=== PATIENT | male | born 1980 | race Caucasian/White ===

== ENCOUNTER 2016-06-08 18:57 | Emergency (ER) | payer OTHER ==
[~2016-06-08] VITALS: Ht 177.8 cm; Wt 76.6 kg
[~2016-06-08 18:57] MED LIST: ACET325T33 PO; AZIT250T94 PO; IBUP-1542 PO; ONDA4TAB8 PO; PSEU120T11 PO
[2016-06-08 19:14] VITALS: Ht 177.8 cm; Wt 76.6 kg
[2016-06-08] MEDS ORDERED: HYDROCODONE/APAP (5/325) TAB PO ONE (22:00)
--- NOTE | 2016-06-08 22:20 | RADRPT ---
PROCEDURE: XR Left Ankle. CLINICAL INDICATION: Fall from ladder with ankle pain. TECHNIQUE: AP, oblique and lateral views of the left ankle were performed. COMPARISON: No. FINDINGS: There is normal mineralization and alignment. No acute fracture or osseous lesion is identified. The joints are normal. There is mild soft tissue swelling over the medial malleolus. IMPRESSION: 1. Soft tissue swelling over the medial malleolus with no underlying fracture or dislocation noted. RPTAT:AAJJ Physician Sergo Date Time Electronically viewed and signed by Po Michaels Physician on 06/08/2016 22:20 /
--- NOTE | 2016-06-08 22:21 | RADRPT ---
PROCEDURE: XR Left Foot. CLINICAL INDICATION: Ankle pain after fall from a ladder. TECHNIQUE: AP, lateral and oblique views of the left foot was obtained. The images were reviewed on a PACS workstation. COMPARISON: No. FINDINGS: The soft tissues and bony elements are normal. There is soft tissue swelling over the medial malleol us. There is no evidence of an acute fracture or dislocation. Some soft tissue swelling is suspecte d adjacent to the fifth metatarsal bone. IMPRESSION: 1. There is soft tissue swelling but no evidence of an acute fracture or dislocation. RPTAT:AAJJ Physician Sergo Date Time Electronically viewed and signed by Po Michaels Physician on 06/08/2016 22:21 GRIFFIN/
--- NOTE | 2016-06-08 22:33 | RADRPT ---
PROCEDURE: XR Lumbar Spine. CLINICAL INDICATION: Low back pain after a fall. TECHNIQUE: AP supine , cone-down lateral, and lateral views of the lumbar spine were obtained. COMPARISON: None. FINDINGS: Mineralization is within normal limits. Vertebral bodies are normal in height. No fracture is iden tified. Lumbar lordosis is preserved. No vertebral subluxation is seen. The intervertebral discs are normal in height. Paraspinal contours are unremarkable. RPTAT:HJJR IMPRESSION: Unremarkable three view series of the lumbar spine. Physician Wiley Date Time Electronically viewed and signed by Physician Wiley on 06/08/2016 22:32 /
--- NOTE | 2016-06-08 22:33 | RADRPT ---
PROCEDURE: XR Tibia and Fibula. CLINICAL INDICATION: Trauma TECHNIQUE: AP and lateral of the left tibia and fibula were obtained, a total of 4 images sent to the PACS for review. COMPARISON: None available FINDINGS: There is normal mineralization and alignment. No fracture or osseous lesion is identified. There are normal soft tissues without evidence of soft tissue swelling or radiopaque foreign body. RPTAT:HJJR IMPRESSION: Unremarkable left tibia and fibula series. Physician Wiley Date Time Electronically viewed and signed by Physician Wiley on 06/08/2016 22:33 JR/
[2016-06-08] MEDS ORDERED: IBUP-1542 PO (23:04)
[2016-06-08] MEDS ORDERED: HYDR-906 PO (23:06)
--- NOTE | 2016-06-08 23:18 | ERD ---
ER Documentation Chief Complaint Date/Time DATE: 06/08/16 TIME: 23:11 Chief Complaint left ankle swelling since yesterday, sp fell on a ladder yesterday HPI Patient is a 36-year-old male who presents to the emergency department with left lower extremity pain status post falling off a ladder yesterday. Patient states that he was approximately 10 feet high when his foot got caught upon coming down the ladder and he fell off the ladder. Patient states he landed on his bilateral feet standing up. Patient reports pain to his left ankle and foot. Patient denies any pain to the right lower extremity. Patient states despite elevating his left lower extremity and taking pain medication, the pain persists. Patient reports swelling to his ankle and midfoot. Patient last took ibuprofen 800 mg 5 PM today. Patient states his current pain level is 6 out of 10. Patient denies any numbness or tingling. Patient denies any fever and chills. Patient denies any back pain. Patient denies any previous injuries. ROS All systems reviewed and are negative except as per history of present illness. Medications Home Meds Active Scripts Hydrocodone/Acetaminophen (Kiel 5-325 Tablet) 1 Each Tablet, 1 TAB PO Q6H Y for PAIN, #10 TAB Prov:BOBBY DAO PA-C 06/08/16 Ibuprofen* (Motrin*) 600 Mg Tab, 600 MG PO Q6, #30 TAB Prov:BOBBY DAO PA-C 06/08/16 Ondansetron Hcl* (Zofran*) 4 Mg Tablet, 4 MG PO Q8H Y for NAUSEA AND/OR VOMITING , #10 TAB Prov:HEIDE MCCONNELL DO 03/21/16 Ibuprofen* (Motrin*) 600 Mg Tab, 600 MG PO Q6H Y for PAIN, #14 TAB Prov:MARILEE BOUCHER MD 11/28/15 Pseudoephedrine Hcl (Sudafe 12-Hour) 120 Mg Tablet.er, 120 MG PO BID Y for CONGESTION, #14 TAB.SA Prov:MARILEE BOUCHER MD 11/28/15 Azithromycin* (Zithromax*) 250 Mg Tablet, 250 MG PO .ZPACK DIRECTED, #6 TAB TAKE 500 MG (2 TABS) THE FIRST DAY THEN 250 MG (1 TAB) DAYS 2-5 Prov:MARILEE BOUCHER MD 11/28/15 Acetaminophen* (Tylenol*) 325 Mg Tablet, 2 TAB PO Q8 Y for PAIN AND OR ELEVATED TEMP, #20 TAB Prov:ABRAHANGUME Mitesh LAY 10/23/15 Allergies Allergies: Coded Allergies: No Known Allergy (Unverified , 03/21/16) PMhx/Soc History of Surgery: No Anesthesia Reaction: No Hx Neurological Disorder: No Hx Respiratory Disorders: No Hx Cardiac Disorders: No Hx Psychiatric Problems: No Hx Miscellaneous Medical Probl: No (DENIES MEDICAL AND SURGICAL HX.) Hx Alcohol Use: Yes (OCCASIONALLY) Hx Substance Use: Yes (MEDUICAL MARIJUFAIRFAX) Hx Tobacco Use: No Smoking Status: Former smoker FmHx Family History: No diabetes Physical Exam Vitals Vital Signs Date Time Temp Pulse Resp B/P Pulse Ox O2 Delivery O2 Flow Rate FiO2 06/08/16 19:14 98.7 121 20 131/63 100 Physical Exam GENERAL: Well-developed, well-nourished male. Appears in no acute distress. HEAD: Normocephalic, atraumatic. EYES: Pupils are equally reactive bilaterally. EOMs grossly intact. No conjunctival erythema. ENT: Moist mucous membranes. No uvula deviation. No kissing tonsils. NECK: Supple. No cervical midline tenderness.. Normal range of motion of the neck. LUNG: Clear to auscultation bilaterally. No rhonchi, wheezing, rales or coarse breath sounds. HEART: Regular rate and rhythm. No murmurs, rubs or gallops. BACK: No midline tenderness. EXTREMITIES: Equal pulses bilaterally. No peripheral clubbing, cyanosis or edema. No unilateral leg swelling. NEUROLOGIC: Alert and oriented. Moving all four extremities without any difficulty. Normal speech. Steady gait. SKIN: Normal color. Warm and dry. No rashes or lesions. LEFT LOWER LEG: No deformity. +Ecchymosis and swelling to the medial aspect of the base of the fifth metatarsal, midfoot, ankle and distal fibula. Skin intact. Decreased range of motion of the ankle secondary to swelling. Range of motion of the toes and knee. Tender to palpation of the lateral and medial ankle, midfoot, distal fibula. No joint line tenderness. (Sensation intact to light touch. Neurovascularly intact. (Able to plantarflex, dorsiflex, jesse foot , invert foot, raise big toe.) 2+ DP and DT pulses. Results 24 hrs Current Medications Medications (Trade) Dose Ordered Sig/Merle Route PRN Reason Start Time Stop Time Status Last Admin Dose Admin Acetaminophen/ Hydrocodone Bitart (Kiel (5/325)) 1 tab ONCE ONCE PO 06/08/16 22:00 06/08/16 22:01 DC 06/08/16 22:24 Procedures/MDM ED COURSE: The patient was stable throughout ED course. I kept the patient and/or family informed of laboratory and diagnostic imaging results throughout the ED course. DIAGNOSTIC IMAGING: Read by radiologist. DIAGNOSTIC IMAGING REPORT Patient: BO MARTINEZ : 1980 Age: 36 Sex: M MR #: [id number] DOS: 06/08/162144 Ordering MD: BOBBY DAO PA-C Location: [facility] Room/Bed: PROCEDURE: XR Left Ankle. CLINICAL INDICATION: Fall from ladder with ankle pain. TECHNIQUE: AP, oblique and lateral views of the left ankle were performed. COMPARISON: No. FINDINGS: There is normal mineralization and alignment. No acute fracture or osseous lesion is identified. The joints are normal. There is mild soft tissue swelling over the medial malleolus. IMPRESSION: 1. Soft tissue swelling over the medial malleolus with no underlying fracture or dislocation noted. RPTAT:AAJJ Physician Sergo Date Time Electronically viewed and signed by Po Michaels Physician on 06/08/2016 22:20 JM/ CC: BOBBY DAO PA-C DIAGNOSTIC IMAGING REPORT Patient: BO MARTINEZ : 1980 Age: 36 Sex: M MR #: [id number] DOS: 06/08/162144 Ordering MD: BOBBY DAO PA-C Location: [facility] Room/Bed: PROCEDURE: XR Left Foot. CLINICAL INDICATION: Ankle pain after fall from a ladder. TECHNIQUE: AP, lateral and oblique views of the left foot was obtained. The images were reviewed on a PACS workstation. COMPARISON: No. FINDINGS: The soft tissues and bony elements are normal. There is soft tissue swelling over the medial malleolus. There is no evidence of an acute fracture or dislocation. Some soft tissue swelling is suspected adjacent to the fifth metatarsal bone. IMPRESSION: 1. There is soft tissue swelling but no evidence of an acute fracture or dislocation. RPTAT:AAJJ Physician Sergo Date Time Electronically viewed and signed by Physician Sergo on 06/08/2016 22:21 JM/ CC: BOBBY DAO PA-C DIAGNOSTIC IMAGING REPORT Patient: SARAY MARTINEZO : 1980 Age: 36 Sex: M MR #: [id number] DOS: 06/08/16 2145 Ordering MD: BOBBY DAO PA-C Location: [facility] Room/Bed: PROCEDURE: XR Lumbar Spine. CLINICAL INDICATION: Low back pain after a fall. TECHNIQUE: AP supine , cone-down lateral, and lateral views of the lumbar spine were obtained. COMPARISON: None. FINDINGS: Mineralization is within normal limits. Vertebral bodies are normal in height. No fracture is identified. Lumbar lordosis is preserved. No vertebral subluxation is seen. The intervertebral discs are normal in height. Paraspinal contours are unremarkable. RPTAT:HJJR IMPRESSION: Unremarkable three view series of the lumbar spine. Physician Wiley Date Time Electronically viewed and signed by Physician Wiley on 06/08/2016 22:32 JR/ CC: BOBBY DAO PA-C DIAGNOSTIC IMAGING REPORT Patient: SANTINO MARTINEZARDO : 1980 Age: 36 Sex: M MR #: [id number] DOS: 06/08/16 2145 Ordering MD: BOBBY DAO PA-C Location: [facility] Room/Bed: PROCEDURE: XR Tibia and Fibula. CLINICAL INDICATION: Trauma TECHNIQUE: AP and lateral of the left tibia and fibula were obtained, a total of 4 images sent to the PACS for review. COMPARISON: None available FINDINGS: There is normal mineralization and alignment. No fracture or osseous lesion is identified. There are normal soft tissues without evidence of soft tissue swelling or radiopaque foreign body. RPTAT:HJJR IMPRESSION: Unremarkable left tibia and fibula series. Physician Wiley Date Time Electronically viewed and signed by Physician Wiley on 06/08/2016 22:33 JR/ CC: BOBBY DAO PA-C PROCEDURES: SPLINT APPLICATION: The patient was verbally consented at bedside prior to splint application. Patient was explained the risks, benefits and alternatives to this procedure. The patient was neurovascularly intact prior to and status post application of the splint. The patient tolerated the procedure well with no complications. Splint type: Kaveh wrap Extremity: left lower extremity Indication: sprain, unable to rule out any ligament or tendon injuries. Unable to rule out Lisfranc fracture or dancer's fracture. MEDICATIONS GIVEN: Kiel Patient tolerated medication well with no adverse reactions. Patient reported improvement in pain. MEDICAL DECISION MAKING: This is a 36-year-old male who presents with left lower extremity pain s/p falling from a ladder yesterday. X-ray imaging was negative of the left foot, left ankle, left tibiofibular, lumbar spine. Given these findings, the patient's presentation is most consistent with ankle and foot sprain. I have a much lower clinical concern for lumbar compression fracture, ankle dislocation, ankle fracture, tibia fracture, fibula fracture, tibial plateau fracture, Maisonneuve fracture, metatarsal fracture, toe dislocation, osteomyelitis, septic joint, gout, osteoarthritis, DVT, compartment syndrome. At this time, unable to rule out any tendon and ligament injuries. PRESCRIPTIONS: Kiel, ibuprofen DISCHARGE: At this time, patient is stable for discharge and outpatient management. Patient was given a copy of all imaging studies. RICE therapy was advised. I have instructed the patient to follow-up with his/her primary care physician in 1-2 days. I have discussed with the patient the possibility of needing to see an cycle specialist for further workup and imaging if the pain persists. I have instructed the patient to promptly return to the ER for any new or worsening symptoms including increased pain, swelling, redness, warmth or fever. The patient and/or family expressed understanding of and agreement with this plan. All questions were answered. Home care instructions were provided. Departure Diagnosis: Primary Impression: Foot sprain Encounter type: initial encounter Laterality: left Qualified Code: S93.602A - Foot sprain, left, initial encounter Additional Impression: Ankle sprain Encounter type: initial encounter Involved ligament of ankle: unspecified ligament Laterality: left Qualified Code: S93.402A - Sprain of left ankle, unspecified ligament, initial encounter Patient Instructions: What Are Ankle Sprains? Referrals: [facility] YOU HAVE RECEIVED A MEDICAL SCREENING EXAM AND THE RESULTS INDICATE THAT YOU DO NOT HAVE A CONDITION THAT REQUIRES URGENT TREATMENT IN THE EMERGENCY DEPARTMENT. FURTHER EVALUATION AND TREATMENT OF YOUR CONDITION CAN WAIT UNTIL YOU ARE SEEN IN YOUR DOCTORS OFFICE WITHIN THE NEXT 1-2 DAYS. IT IS YOUR RESPONSIBILITY TO MAKE AN APPOINTMENT FOR FOLOW-UP CARE. IF YOU HAVE A PRIMARY DOCTOR --you should call your primary doctor and schedule an appointment IF YOU DO NOT HAVE A PRIMARY DOCTOR YOU CAN CALL OUR PHYSICIAN REFERRAL HOTLINE AT IF YOU CAN NOT AFFORD TO SEE A PHYSICIAN YOU CAN CHOSE FROM THE FOLLOWING [facility] [address] [facility] [address] [facility] [facility] [address] [facility] [facility] [address] [facility] [facility] [address] [facility]. [facility]. [address] [facility]. [facility] YOU HAVE RECEIVED A MEDICAL SCREENING EXAM AND THE RESULTS INDICATE THAT YOU DO NOT HAVE A CONDITION THAT REQUIRES URGENT TREATMENT IN THE EMERGENCY DEPARTMENT. FURTHER EVALUATION AND TREATMENT OF YOUR CONDITION CAN WAIT UNTIL YOU ARE SEEN IN YOUR DOCTORS OFFICE WITHIN THE NEXT 1-2 DAYS. IT IS YOUR RESPONSIBILITY TO MAKE AN APPOINTMENT FOR FOLOW-UP CARE. IF YOU HAVE A PRIMARY DOCTOR --you should call your primary doctor and schedule and appointment IF YOU DO NOT HAVE A PRIMARY DOCTOR YOU CAN CALL OUR PHYSICIAN REFERRAL HOTLINE AT . IF YOU CAN NOT AFFORD TO SEE A PHYSICIAN YOU CAN CHOSE FROM THE FOLLOWING [facility] INSTITUTIONS: [facility] [address] [place] [address] [facility] [address] [place] [address] [facility] [address] [place] [address] [facility] Hours: Mon-Fri 9:00 AM - 5:00 PM Additional Instructions: Unable to rule out any tendon or ligament injuries at this time. Patient will need to follow-up with an cycle specialist and/or obtain MRI imaging of the pain persist. Rest. Ice. Compression. Elevation advised. Take pain medication as needed. Call your primary care doctor TOMORROW for an appointment during the next 1-2 days.See the doctor sooner or return here if your condition worsens before your appointment time. BOBBY DAO PA-C Jun 08, 2016 23:18
== END 2016-06-08 23:14 | disposition home or self-care (01) ==
LOC: FTE 18:57
DX: S93.602A Unspecified sprain of left foot, initial encounter (principal); S93.402A Sprain of unspecified ligament of left ankle, initial encounter; W11.XXXA Fall on and from ladder, initial encounter; Y92.9 Unspecified place or not applicable; Z87.891 Personal history of nicotine dependence
CPT/HCPCS: 72100; 73590; 73610; 73630; Z7502; Z7610

== ENCOUNTER 2016-06-30 10:54 | Emergency (ER) | payer OTHER ==
[~2016-06-30] VITALS: Ht 180.3 cm; Wt 73.0 kg
[~2016-06-30 10:54] MED LIST changes: +HYDR-906 PO
[2016-06-30 11:08] VITALS: Ht 180.3 cm; Wt 73.0 kg
[2016-06-30] MEDS ORDERED: AMO500 PO (14:13)
[2016-06-30] MEDS ORDERED: CETI10CA PO (14:13)
[2016-06-30] MEDS ORDERED: UDROBDM PO (14:13)
--- NOTE | 2016-06-30 14:26 | ERD ---
ER Documentation Chief Complaint Date/Time DATE: 06/30/16 TIME: 14:23 Chief Complaint FEVER,COUGH,SORE THROAT,EARACHE HPI 36-year-old male comes with fever, cough, sore throat and bilateral ear pain for the past 2-3 days. He states he has been taking Tylenol, as well as DayQuil. No vomiting, diarrhea, rashes, neck stiffness. No trouble swallowing , voice changes or drooling. ROS All systems reviewed and are negative except as per history of present illness. Medications Home Meds Active Scripts Cetirizine Hcl* (Zyrtec*) 10 Mg Capsule, 10 MG PO DAILY, #10 TAB.CHEW Prov:FRED DUGGAN PA-C 06/30/16 Guaifenesin-Dextromethorphan* (Robitussin* DM) 100MG/10MG/5ML Syrup, 5 ML PO Q4H Y for COUGH, #8 OZ Prov:FRED DUGGAN PA-C 06/30/16 Amoxicillin* (Amoxicillin*) 500 Mg Cap, 500 MG PO TID for 7 Days, CAP Prov:FRED DUGGAN PA-C 06/30/16 Hydrocodone/Acetaminophen (Quitman 5-325 Tablet) 1 Each Tablet, 1 TAB PO Q6H Y for PAIN, #10 TAB Prov:BOBBY DAO PA-C 06/08/16 Ibuprofen* (Motrin*) 600 Mg Tab, 600 MG PO Q6, #30 TAB Prov:BOBBY DAO PA-C 06/08/16 Ondansetron Hcl* (Zofran*) 4 Mg Tablet, 4 MG PO Q8H Y for NAUSEA AND/OR VOMITING , #10 TAB Prov:HEIDE MCCONNELL DO 03/21/16 Ibuprofen* (Motrin*) 600 Mg Tab, 600 MG PO Q6H Y for PAIN, #14 TAB Prov:MARILEE BOUCHER MD 11/28/15 Pseudoephedrine Hcl (Sudafe 12-Hour) 120 Mg Tablet.er, 120 MG PO BID Y for CONGESTION, #14 TAB.SA Prov:MARILEE BOUCHER MD 11/28/15 Azithromycin* (Zithromax*) 250 Mg Tablet, 250 MG PO .ZPACK DIRECTED, #6 TAB TAKE 500 MG (2 TABS) THE FIRST DAY THEN 250 MG (1 TAB) DAYS 2-5 Prov:MARILEE BOUCHER MD 11/28/15 Acetaminophen* (Tylenol*) 325 Mg Tablet, 2 TAB PO Q8 Y for PAIN AND OR ELEVATED TEMP, #20 TAB Prov:GUME GAUTHIER PA-C 10/23/15 Allergies Allergies: Coded Allergies: No Known Allergy (Unverified , 06/30/16) PMhx/Soc Medical and Surgical Hx: pt denies Medical Hx, pt denies Surgical Hx History of Surgery: No Anesthesia Reaction: No Hx Neurological Disorder: No Hx Respiratory Disorders: No Hx Cardiac Disorders: No Hx Psychiatric Problems: No Hx Miscellaneous Medical Probl: No Hx Alcohol Use: Yes (OCCASIONALLY) Hx Substance Use: Yes (MEDICAL MARIJUALVATON) Hx Tobacco Use: No Physical Exam Vitals Vital Signs Date Time Temp Pulse Resp B/P Pulse Ox O2 Delivery O2 Flow Rate FiO2 06/30/16 11:08 97.5 112 18 132/66 98 Physical Exam General: Well-developed, well-nourished. The patient appears in no acute distress. HEENT: Head is normocephalic, atraumatic. No scleral icterus. Oropharynx is clear, no exudate, no LAD, no meningismus. TMs are normal. Neck: Supple. Nontender. Lungs: Clear to auscultation. Normal air movement. Heart: Regular rate and rhythm. S1 and S2 are normal. No murmurs, gallops, or rubs. Abdomen: Nondistended. Extremities: No clubbing or cyanosis. Moving extremities x 4. No weakness. Neurologic: Alert and oriented 3. No focal deficits. Normal speech and gait. Skin: Normal turgor. No rash or lesions. Procedures/MDM The patient is a 36-year-old male who comes in with an acute upper respiratory infection, presumed viral. The patient has a differential diagnosis of a viral upper respiratory infection, bacterial upper respiratory infection, bronchitis, pneumonia, pharyngitis, laryngitis, epiglottitis, croup, pneumonia. Patient has a normal pulmonary examination, clear breath sounds, normal pulse oximetry, with no corrective measures needed at this time. Fluids, rest, antipyretics were encouraged. Patient was wondering if he would be able to get antibiotics, he was informed that this is likely a virus, and there is no efficacy for antibiotics in this presentation. He will be given antibiotics for sore throat , given if he has fever for an additional 3 more days, patient expresses understanding and agrees to plan. Departure Diagnosis: Primary Impression: Influenza-like symptoms Condition: Good Patient Instructions: Viral Syndrome (Adult) Additional Instructions: Call your primary care doctor TOMORROW for an appointment during the next 1-2 days.See the doctor sooner or return here if your condition worsens before your appointment time. FRED DUGGAN PA-C Jun 30, 2016 14:26
== END 2016-06-30 15:13 | disposition home or self-care (01) ==
LOC: FTE 10:54
DX: R50.9 Fever, unspecified (principal); J02.9 Acute pharyngitis, unspecified; H92.03 Otalgia, bilateral
CPT/HCPCS: 99283

== ENCOUNTER 2016-09-27 22:51 | Emergency (ER) | payer OTHER ==
[~2016-09-27] VITALS: Ht 177.8 cm; Wt 73.0 kg
[~2016-09-27 22:51] MED LIST changes: +AMO500 PO; +CETI10CA PO; +UDROBDM PO
[2016-09-27 23:25] VITALS: Ht 177.8 cm; Wt 73.0 kg
[2016-09-27] MEDS ORDERED: SOD CHLORIDE 0.9% 1,000 ML IV STA (23:39)
[2016-09-27] MEDS ORDERED: morphine 4 MG/ML VIAL IV STA (23:39)
[2016-09-27] MEDS ORDERED: ONDANSETRON 4 MG INJ IV STA (23:39)
--- NOTE | 2016-09-27 23:50 | ERD ---
ER Documentation Chief Complaint Date/Time DATE: 09/27/16 TIME: 23:49 Chief Complaint left testicular pain x 2 days. getting worse HPI 36 year male presents in emergency department for complaints of left testicular pain and swelling for 2 days. Patient describes the pain as throbbing pain, 8/ 10 scale, is worse upon touching the area accompanied with swelling and redness. Patient denies any penile discharge. Patient denies any lesions. Patient denies hematuria or dysuria. Patient has new sexual partner, has been seeing his partner for 6 months only. Patient does not use any protection during sexual intercourse. ROS All systems reviewed and are negative except as per history of present illness. Medications Home Meds Active Scripts Hydrocodone/Acetaminophen (Bells 5-325 Tablet) 1 Each Tablet, 1 TAB PO Q6H Y for SEVERE PAIN LEVEL 7-10, #20 TAB Prov:REGLA EUBANKS NP 09/28/16 Sulfamethoxazole/Trimethoprim* (Bactrim Ds* Tablet) 1 Each Tablet, 1 TAB PO BID , #20 TAB Prov:REGLA EUBANKS NP 09/28/16 Ibuprofen* (Motrin*) 600 Mg Tab, 600 MG PO Q6H Y for PAIN AND OR ELEVATED TEMP, #30 TAB Prov:REGLA EUBANKS NP 09/28/16 Amoxicillin/Potassium Clav (Amox-Clav 875-125 mg Tablet) 875-125 mg Tab, 1 TAB PO BID for 10 Days, #20 TAB Prov:REGLA EUBANKS NP 09/28/16 Cetirizine Hcl* (Zyrtec*) 10 Mg Capsule, 10 MG PO DAILY, #10 TAB.CHEW Prov:FRED DUGGAN PA-C 06/30/16 Guaifenesin-Dextromethorphan* (Robitussin* DM) 100MG/10MG/5ML Syrup, 5 ML PO Q4H Y for COUGH, #8 OZ Prov:FRED DUGGAN PA-C 06/30/16 Amoxicillin* (Amoxicillin*) 500 Mg Cap, 500 MG PO TID for 7 Days, CAP Prov:FRED DUGGAN PA-C 06/30/16 Hydrocodone/Acetaminophen (Bells 5-325 Tablet) 1 Each Tablet, 1 TAB PO Q6H Y for PAIN, #10 TAB Prov:BOBBY DAO PA-C 06/08/16 Ibuprofen* (Motrin*) 600 Mg Tab, 600 MG PO Q6, #30 TAB Prov:BOBBY DAO PA-C 06/08/16 Ondansetron Hcl* (Zofran*) 4 Mg Tablet, 4 MG PO Q8H Y for NAUSEA AND/OR VOMITING , #10 TAB Prov:HEIDE MCCONNELL DO 03/21/16 Ibuprofen* (Motrin*) 600 Mg Tab, 600 MG PO Q6H Y for PAIN, #14 TAB Prov:MARILEE BOUCHER MD 11/28/15 Pseudoephedrine Hcl (Sudafe 12-Hour) 120 Mg Tablet.er, 120 MG PO BID Y for CONGESTION, #14 TAB.SA Prov:MARILEE BOUCHER MD 11/28/15 Azithromycin* (Zithromax*) 250 Mg Tablet, 250 MG PO .ZPACK DIRECTED, #6 TAB TAKE 500 MG (2 TABS) THE FIRST DAY THEN 250 MG (1 TAB) DAYS 2-5 Prov:MARILEE BOUCHER MD 11/28/15 Acetaminophen* (Tylenol*) 325 Mg Tablet, 2 TAB PO Q8 Y for PAIN AND OR ELEVATED TEMP, #20 TAB Prov:GUME GAUTHIER PA-C 10/23/15 Allergies Allergies: Coded Allergies: No Known Allergy (Unverified , 06/30/16) PMhx/Soc Medical and Surgical Hx: pt denies Medical Hx, pt denies Surgical Hx History of Surgery: No Anesthesia Reaction: No Hx Neurological Disorder: No Hx Respiratory Disorders: No Hx Cardiac Disorders: No Hx Psychiatric Problems: No Hx Miscellaneous Medical Probl: No Hx Alcohol Use: Yes (OCCASIONALLY) Hx Substance Use: Yes ([facility]) Hx Tobacco Use: No Smoking Status: Never smoker FmHx Family History: No coronary disease, No diabetes, No other Physical Exam Vitals Vital Signs Date Time Temp Pulse Resp B/P Pulse Ox O2 Delivery O2 Flow Rate FiO2 09/28/16 03:07 99.0 110 16 134/76 100 Room Air 09/28/16 02:25 100.0 110 17 131/75 99 Room Air 09/27/16 23:25 98.4 129 18 137/67 99 Physical Exam GENERAL: The patient is well developed and appropriate for usual state of health, in no apparent distress. CHEST: Clear to auscultation bilaterally. There are no rales, wheezes or rhonchi. HEART: Regular rate and rhythm. No murmurs, clicks, rubs or gallops. No S3 or S4. ABDOMEN: Soft, nontender and nondistended. Good bowel sounds. No rebound or guarding. No gross peritonitis. No gross organomegaly or masses. No Del Real sign or McBurney point tenderness. BACK: No midline or flank tenderness. EXTREMITIES: Equal pulses bilaterally. There is no peripheral clubbing, cyanosis or edema. No focal swelling or erythema. Full range of motion. Grossly neurovascularly intact. NEURO: Alert and oriented. Cranial nerves 2-12 intact. Motor strength in all 4 extremities with 5/5 strength. Sensation grossly intact. Normal speech and gait. SKIN: There is no apparent rash or petechia. The skin is warm and dry. HEMATOLOGIC AND LYMPHATIC: There is no evidence of excessive bruising or lymphedema. No gross cervical, axillary, or inguinal lymphadenopathy. : Noted left testicular swelling or redness tender on palpation. No penile discharge noted. Right testicular area is normal. No lesions noted. Result Diagram: 09/28/16 0015 09/28/16 0015 Results 24 hrs Laboratory Tests Test 09/28/16 00:15 White Blood Count 11.010^3/ul Red Blood Count 4.8210^6/ul Hemoglobin 13.3g/dl Hematocrit 41.1% Mean Corpuscular Volume 85.3fl Mean Corpuscular Hemoglobin 27.6pg Mean Corpuscular Hemoglobin Concent 32.4g/dl Red Cell Distribution Width 12.6% Platelet Count 66583^3/UL Mean Platelet Volume 9.4fl Neutrophils % 70.9% Lymphocytes % 15.8% Monocytes % 11.7% Eosinophils % 0.7% Basophils % 0.3% Nucleated Red Blood Cells % 0.0/100WBC Neutrophils # 7.810^3/ul Lymphocytes # 1.710^3/ul Monocytes # 1.310^3/ul Eosinophils # 0.110^3/ul Basophils # 0.010^3/ul Nucleated Red Blood Cells # 0.010^3/ul Urine Color LT. YELLOW Urine Clarity CLEAR Urine pH Urine Specific [place] Urine Ketones NEGATIVE Urine Nitrite NEGATIVE Urine Bilirubin NEGATIVE Urine Urobilinogen 0.2 E.U./dL Urine Leukocyte Esterase 2+ Urine Microscopic RBC 25-50/HPF Urine Microscopic WBC >50/HPF Urine Bacteria FEW/HPF Urine Hemoglobin 2+ Urine Glucose NEGATIVE% Urine Total Protein 2+ Sodium Level 141mmol/L Potassium Level 4.5mmol/L Chloride Level 105mmol/L Carbon Dioxide Level 26mmol/L Anion Gap 15 Blood Urea Nitrogen 17mg/dl Creatinine 0.94mg/dl Glucose Level 103mg/dl Calcium Level 9.4mg/dl Total Bilirubin 0.1mg/dl Direct Bilirubin 0.00mg/dl Indirect Bilirubin 0.1mg/dl Aspartate Amino Transf (AST/SGOT) 27IU/L Alanine Aminotransferase (ALT/SGPT) 33IU/L Alkaline Phosphatase 78IU/L Total Protein 6.8g/dl Albumin 4.2g/dl Globulin 2.60g/dl Albumin/Globulin Ratio 1.61 Current Medications Medications (Trade) Dose Ordered Sig/Merle Route PRN Reason Start Time Stop Time Status Last Admin Dose Admin Sodium Chloride (NS) 1,000 ml @ 1,000 mls/hr Q1H STAT IV 09/27/16 23:39 09/28/16 00:38 DC 09/28/16 00:26 Morphine Sulfate (morphine) 4 mg ONCE STAT IV 09/27/16 23:39 09/27/16 23:41 DC 09/28/16 00:26 Ondansetron HCl 4 mg 4 mg ONCE STAT IV 09/27/16 23:39 09/27/16 23:41 DC 09/28/16 00:26 Ceftriaxone Sodium (Rocephin) 50 ml @ 100 mls/hr ONCE ONCE IVPB 09/28/16 01:30 09/28/16 01:59 DC 09/28/16 01:46 Azithromycin (Zithromax) 1,000 mg ONCE ONCE PO 09/28/16 01:30 09/28/16 01:31 DC 09/28/16 01:46 Ketorolac Tromethamine (Toradol) 30 mg ONCE STAT IV 09/28/16 02:27 09/28/16 02:28 DC 09/28/16 02:34 Patient was given medication for pain here in emergency department, after treatment, patient verbalized feeling much better. Patient's pain is improved.Patient was given Zofran here in the emergency department. After treatment, patient was able to tolerate po fluids here in the emergency department without any vomiting. There is no signs and symptoms of dehydration. Normal saline IV bolus was given here in emergency department for rehydration, patient tolerated IV fluids. Rocephin and azithromycin was given here in emergency department. Tolerated medication well. PROCEDURE: Testicle ultrasound with power Doppler. CLINICAL INDICATION: Scrotal pain. TECHNIQUE: Multiple sonographic images of the scrotal region were obtained utilizing a linear array transducer with grayscale and color-flow and a Doppler imaging. The images were reviewed on a high-resolution PACS workstation. COMPARISON: None. FINDINGS: Bilateral testicles are normal in size, contour, echogenicity and echotexture. The right testicle measures 5.6 x 2.4 x 2.8 cm and the left testicle measures 5.6 x 3.0 x 3.4 cm. Testicle arterial and venous flow are normal. There is a heterogeneous, hypoechoic area along the periphery of the left testicle measuring 1.4 x 2.1 x 1.7 cm with color flow. There is no evidence of torsion. Bilateral epididymi are normal in size, contour, position and echogenicity. The right epididymis measures 11.5 x 5.0 mm the left epididymis measures 12.6 x 6.0 mm. There is increased flow to the left epididymis. There is no significant hydrocele or varicocele. IMPRESSION: Heterogeneous, hypoechoic area along the periphery of the left testicle measuring 1.4 x 2.1 x 1.7 cm with color flow. Considerations include intratesticular focal orchitis or neoplasm and extratesticular neoplasm. Further evaluation is recommended. Increased flow to the left epididymis suggestive of epididymitis. A call report was made to Regla Eubanks at 01:05 a.m. .Brian Nino MD, MD Date Time Electronically viewed and signed by .Brian Nino MD, on 09/28/2016 01:06 .T/ CC: REGLA EUBANKS [employer] Procedures/MDM Medical decision making: Patient symptoms is likely consistent with epididymal orchitis. Patient was given Rocephin and azithromycin for possible STD source, since patient had new sexual partner in the last 6 months. Patient does not have any symptoms of testicular torsion. No symptoms of any abscess. There is a possible lesion or mass noted in the left testicular area, can be from the orchitis, but patient was advised to have this checked by urology specialist possible biopsy for possible neoplasm. Patient was advised of this, verbalized understanding. Patient will be given Augmentin and Bactrim for treatment of epididymitis. Patient is advised to follow with primary care doctor in 2-3 days for reevaluation of symptoms. Patient was given ibuprofen and Bells for pain. Patient was advised to return to emergency department for any worsening symptoms. Disposition: Home. Stable Departure Diagnosis: Primary Impression: Epididymo-orchitis Condition: Stable Patient Instructions: Epididymitis Additional Instructions: patient was advised to have this checked by urology specialist possible biopsy for possible neoplasm REGLA EUBANKS NP Sep 27, 2016 23:50
[2016-09-28 00:40] LABS: ADD SCAN DIFF NO
[2016-09-28 00:50] LABS: BASOPHILS % 0.3 % (0.0-2.0); EOSINOPHILS # 0.1 10^3/ul (0.0-0.5); EOSINOPHILS % 0.7 % (0.0-7.0); HEMATOCRIT 41.1 % (42.0-52.0); HEMOGLOBIN 13.3 g/dl (14.0-18.0); LYMPHOCYTES # 1.7 10^3/ul (0.8-2.9); LYMPHOCYTES % 15.8 % (15.0-51.0); MEAN CORPUSCULAR HEMOGLOBIN 27.6 pg (29.0-33.0); MEAN CORPUSCULAR HGB CONC 32.4 g/dl (32.0-37.0); MEAN CORPUSCULAR VOLUME 85.3 fl (82.0-101.0); MEAN PLATELET VOLUME 9.4 fl (7.4-10.4); MONOCYTE # 1.3 10^3/ul (0.3-0.9); MONOCYTES % 11.7 % (0.0-11.0); NEUTROPHIL # 7.8 10^3/ul (1.6-7.5); NEUTROPHILS % 70.9 % (39.0-77.0); PLATELET COUNT 317 10^3/UL (140-415); RED BLOOD COUNT 4.82 10^6/ul (4.70-6.10); RED CELL DISTRIBUTION WIDTH 12.6 % (11.5-14.5)
--- NOTE | 2016-09-28 01:06 | RADRPT ---
PROCEDURE: Testicle ultrasound with power Doppler. CLINICAL INDICATION: Scrotal pain. TECHNIQUE: Multiple sonographic images of the scrotal region were obtained utilizing a linear arra y transducer with grayscale and color-flow and a Doppler imaging. The images were reviewed on a high -resolution PACS workstation. COMPARISON: None. FINDINGS: Bilateral testicles are normal in size, contour, echogenicity and echotexture. The right testicle m easures 5.6 x 2.4 x 2.8 cm and the left testicle measures 5.6 x 3.0 x 3.4 cm. Testicle arterial and venous flow are normal. There is a heterogeneous, hypoechoic area along the periphery of the left te sticle measuring 1.4 x 2.1 x 1.7 cm with color flow. There is no evidence of torsion. Bilateral epididymi are normal in size, contour, position and echogenicity. The right epididymis me asures 11.5 x 5.0 mm the left epididymis measures 12.6 x 6.0 mm. There is increased flow to the left epididymis. There is no significant hydrocele or varicocele. IMPRESSION: Heterogeneous, hypoechoic area along the periphery of the left testicle measuring 1.4 x 2.1 x 1.7 cm with color flow. Considerations include intratesticular focal orchitis or neoplasm and extratesticu lar neoplasm. Further evaluation is recommended. Increased flow to the left epididymis suggestive of epididymitis. A call report was made to Regla Rowland at 01:05 a.m. .Brian Nino MD, MD Date Time Electronically viewed and signed by .Brian Nino MD, MD on 09/28/2016 01:06 .T/
[2016-09-28 01:07] LABS: ALBUMIN 4.2 g/dl (3.3-4.9); ALBUMIN/GLOBULIN RATIO 1.61; BILIRUBIN,INDIRECT 0.1 mg/dl (0-1.1); BILIRUBIN,TOTAL 0.1 mg/dl (0.2-1.3); CALCIUM 9.4 mg/dl (8.4-10.2); CREATININE 0.94 mg/dl (0.61-1.24); POTASSIUM 4.5 mmol/L (3.5-5.1); TOTAL PROTEIN 6.8 g/dl (6.1-8.1)
[2016-09-28 01:18] LABS: ADD UMIC YES; UR BILIRUBIN (Dip) NEGATIVE (NEGATIVE); UR BLOOD (Dip) 2+ (NEGATIVE); UR CLARITY CLEAR (CLEAR); UR COLOR LT. YELLOW (YELLOW); UR GLUCOSE (Dip) NEGATIVE (NEGATIVE); UR KETONES (Dip) NEGATIVE (NEGATIVE); UR LEUKOCYTE ESTERASE (Dip) 2+ (NEGATIVE); UR NITRITE (Dip) NEGATIVE (NEGATIVE); UR TOTAL PROTEIN (Dip) 2+ (NEGATIVE); UR UROBILINOGEN (Dip) 0.2 E.U./dL (0.1-1.0)
[2016-09-28] MEDS ORDERED: CEFTRIAXONE 1 GM/50 ML (PMX) 50 ML IVPB ONE (01:30)
[2016-09-28] MEDS ORDERED: AZITHROMYCIN 250 MG TAB PO ONE (01:30)
[2016-09-28 01:38] LABS: UR BACTERIA FEW /HPF (NONE SEEN); URINE RBCS 25-50 /HPF (0)
[2016-09-28] MEDS ORDERED: SULF1TAB31 PO (02:10)
[2016-09-28] MEDS ORDERED: IBUP-1542 PO (02:10)
[2016-09-28] MEDS ORDERED: HYDR-906 PO (02:10)
[2016-09-28] MEDS ORDERED: AMOX1TAB10 PO (02:10)
[2016-09-28] MEDS ORDERED: KETOROLAC 30 MG INJ IV STA (02:27)
[2016-09-28 03:07] VITALS: BP 134/76; PULSE 110; RESP 16; TEMP 99
== END 2016-09-28 03:07 | disposition home or self-care (01) ==
LOC: FTE 22:51
DX: N45.3 Epididymo-orchitis (principal)
CPT/HCPCS: 76870; 80053; 81001; 85025; 87591; J0696; J1885; J2270; J2405; J7030; Z7610; 36415; 96374; 96375

== ENCOUNTER 2016-10-31 22:55 | Emergency (ER) | payer SELFPAY ==
[~2016-10-31] VITALS: Ht 185.4 cm; Wt 74.5 kg
[~2016-10-31 22:55] MED LIST changes: +AMOX1TAB10 PO; +SULF1TAB31 PO
[2016-11-01 04:15] VITALS: Ht 185.4 cm; Wt 74.5 kg
== END 2016-11-01 04:14 | disposition left against medical advice (07) ==
LOC: E/R 22:55
DX: Z53.21 Procedure and treatment not carried out due to patient leaving prior to being seen by health care provider (principal)

== ENCOUNTER 2017-07-01 21:32 | Emergency (ER) | END 2017-07-02 02:22 | disposition home or self-care (01) ==

== ENCOUNTER 2018-03-04 12:57 | Emergency (ER) | END 2018-03-04 13:40 | disposition home or self-care (01) ==